=== PATIENT | female | born 1935 | race Two or more races ===

== ENCOUNTER 2017-10-17 14:01 | Outpatient (CLI) | payer OTHER ==
[~2017-10-17 14:01] MED LIST: CLOPIDOGREL BIS75 MG PO; LOSARTAN POTAS100 MG PO; SYNTHROID137 MCG; VASOTEC10 MG; ZOLOFT25 MG PO
== END 2017-10-17 14:12 | disposition home or self-care (01) ==
LOC: MAMO-SONO 14:01
DX: Z12.31 Encounter for screening mammogram for malignant neoplasm of breast (principal); Z87.898 Personal history of other specified conditions; R92.1 Mammographic calcification found on diagnostic imaging of breast

== ENCOUNTER 2018-04-12 08:26 | Emergency (ER) | payer OTHER ==
[~2018-04-12] VITALS: Ht 157.5 cm; Wt 68.0 kg
== END 2018-04-12 10:21 | disposition home or self-care (01) ==
LOC: ER 08:26
DX: M13.861 Other specified arthritis, right knee (principal); M25.561 Pain in right knee

== ENCOUNTER 2018-04-12 12:30 | Outpatient (CLI) | payer OTHER | END 2018-04-12 12:51 | disposition home or self-care (01) | LOC: LAB 12:30 | DX: N39.0 Urinary tract infection, site not specified (principal); B96.29 Other Escherichia coli [E. coli] as the cause of diseases classified elsewhere; Z22.322 Carrier or suspected carrier of Methicillin resistant Staphylococcus aureus; D68.8 Other specified coagulation defects; E83.42 Hypomagnesemia; D64.89 Other specified anemias; M06.4 Inflammatory polyarthropathy; M10.9 Gout, unspecified; E88.89 Other specified metabolic disorders; M25.461 Effusion, right knee; E55.9 Vitamin D deficiency, unspecified; M85.9 Disorder of bone density and structure, unspecified ==

== ENCOUNTER 2018-04-15 10:14 | Outpatient (CLI) | payer OTHER | END 2018-04-15 10:20 | disposition home or self-care (01) | LOC: LAB 10:14 | DX: M25.461 Effusion, right knee (principal) ==

== ENCOUNTER 2018-04-15 17:51 | Outpatient (CLI) | payer OTHER | END 2018-04-15 18:00 | disposition home or self-care (01) | LOC: LAB 17:51 | DX: M25.461 Effusion, right knee (principal) ==

== ENCOUNTER 2018-08-02 08:53 | Outpatient (CLI) | payer OTHER | END 2018-08-02 09:05 | disposition home or self-care (01) | LOC: LAB 08:53 | DX: D64.89 Other specified anemias (principal); E88.89 Other specified metabolic disorders; D68.8 Other specified coagulation defects; N39.0 Urinary tract infection, site not specified; Z22.322 Carrier or suspected carrier of Methicillin resistant Staphylococcus aureus; Z76.89 Persons encountering health services in other specified circumstances; I49.8 Other specified cardiac arrhythmias ==

== ENCOUNTER 2018-08-14 11:29 | Outpatient (CLI) | payer OTHER ==
[2018-08-15] MEDS ORDERED: LUMIGAN2.5 M1 OPHT (13:34)
== END 2018-08-14 11:46 | disposition home or self-care (01) ==
LOC: RAD 501 11:29
DX: M17.11 Unilateral primary osteoarthritis, right knee (principal); M79.651 Pain in right thigh; M79.604 Pain in right leg

== ENCOUNTER 2018-08-16 07:40 | Inpatient (IN) | payer OTHER ==
[~2018-08-16] VITALS: Ht 157.5 cm; Wt 68.0 kg
[~2018-08-16 07:40] MED LIST changes: +LUMIGAN2.5 M1 OPHT
== END 2018-08-22 14:19 | DRG 470 ==
LOC: SURG 08-19 05:45 → O/R 08-19 05:45 → RECOVERY 08-19 07:00 → SURG 08-19 14:37
PROVIDERS: ADMIT Orthopaedic Surgery
PROC: 0SRC0JZ Replacement of Right Knee Joint with Synthetic Substitute, Open Approach (ICD-10-PCS; principal; 2018-08-19 07:00)
PROC: 30233N1 Transfusion of Nonautologous Red Blood Cells into Peripheral Vein, Percutaneous Approach (ICD-10-PCS; 2018-08-20)
DX: M17.11 Unilateral primary osteoarthritis, right knee (principal); D62 Acute posthemorrhagic anemia; I10 Essential (primary) hypertension; E03.8 Other specified hypothyroidism

== ENCOUNTER 2018-08-23 21:41 | Inpatient (IN) | payer OTHER ==
[~2018-08-23] VITALS: Ht 157.5 cm; Wt 68.0 kg
--- NOTE | 2018-08-23 22:01 | NUR ---
PTE SE RECIBE POR ANEMIA REFIERE PARAMEDICO Y PTE.
--- NOTE | 2018-08-24 00:14 | NUR ---
FOX EVALUA PTE. SE ORIENTA A PTE SOBRE [place] MEDICO. PTE REFIERE COMPRENDER. SE COLECTAN MUESTRAS DE LABORATORIO BAJO MEDIDAS ASEPTICAS. SE ADMINISTRAN IV'S ALBERTO ORDEN MEDICA. SE COLECTAN TUBOS PILOTOS PARA 3 UNIDADES DE PRBC FRACCIONADAS. SE ORIENTA A PTE SOBRE PROTOCOLO DE TRANSFUSION DE SIA. PTE REFIERE COMPRENDER.SE NOTIFICA A PERSONAL DE BANCO DE SIA EN AUXILIO MUTUO A RICHMOND POR . PROCEDIMIENTOS LLEVADOS A CABO POR DB. 11:40AM- PERSONAL DE [place]AN[place] DE SIA BUSCA TUBOS PILOTOS.
--- NOTE | 2018-08-24 08:10 | NUR ---
SE RECIBE PTE ALERTA Y CONCINETE POR 3 EN FELICIA CON BARANDAS ELEVADA Y TIMBRE ACCESIBLE EN COMPANIA DE BAIRD FAMILIAR SE OBSERVA VENOPUNCION PATENTE Y MIGUELITO DE EDEMA, PTE EN ESPERA DEL DR WYNN PTE SE MANTIENE EN OBSERVACION Y BAJO TRATAMIENTO. PTE BAJANDO PRIMERA UNIDAD FRACIONADA
[2018-08-26] MEDS ORDERED: METOPROLOL SUC100 MG PO (09:48)
[2018-08-26] MEDS ORDERED: CLONAZEPAM1 MG PO (09:48)
[2018-08-26] MEDS ORDERED: PANTOPRAZOLE SO40 MG PO (09:49)
[2018-08-26] MEDS ORDERED: ROSUVASTATIN CA10 MG PO (09:49)
[2018-08-28] MEDS ORDERED: XARELTO10 MG PO (13:47)
== END 2018-08-28 17:18 | disposition home or self-care (01) | DRG 812 ==
LOC: ER 21:41 → SEC-K 08-24 12:58 → MEDI 08-24 12:58
PROVIDERS: ADMIT Internal Medicine
PROC: 30233N1 Transfusion of Nonautologous Red Blood Cells into Peripheral Vein, Percutaneous Approach (ICD-10-PCS; principal; 2018-08-24)
PROC: B54BZZZ Ultrasonography of Right Lower Extremity Veins (ICD-10-PCS; 2018-08-25)
PROC: BW28ZZZ Computerized Tomography (CT Scan) of Head (ICD-10-PCS; 2018-08-27)
DX: D62 Acute posthemorrhagic anemia (principal); D50.8 Other iron deficiency anemias; I87.2 Venous insufficiency (chronic) (peripheral); I10 Essential (primary) hypertension; E03.8 Other specified hypothyroidism; Z96.651 Presence of right artificial knee joint; Z88.0 Allergy status to penicillin

== ENCOUNTER 2019-04-24 10:30 | Outpatient (CLI) | payer OTHER ==
[~2019-04-24 10:30] MED LIST changes: +CLONAZEPAM1 MG PO; +METOPROLOL SUC100 MG PO; +PANTOPRAZOLE SO40 MG PO; +ROSUVASTATIN CA10 MG PO; +XARELTO10 MG PO
== END 2019-04-24 10:38 | disposition home or self-care (01) ==
LOC: MAMO-SONO 10:30
DX: Z12.31 Encounter for screening mammogram for malignant neoplasm of breast (principal); Z87.898 Personal history of other specified conditions; R92.0 Mammographic microcalcification found on diagnostic imaging of breast

== ENCOUNTER 2020-06-08 09:45 | Emergency (ER) | payer OTHER ==
[~2020-06-08] VITALS: Ht 149.9 cm; Wt 68.0 kg
[2020-06-08] MEDS ORDERED: HORIZANT300 MG PO (10:35)
[2020-06-08] MEDS ORDERED: CELEBREX100 MG PO (10:35)
[2020-06-08] MEDS ORDERED: VALACYCLOVIR1000 MG PO (10:35)
[2020-06-08] MEDS ORDERED: FLONASE ALLERG9.9 ML NASAL (10:36)
== END 2020-06-08 10:45 | disposition home or self-care (01) ==
LOC: ER 09:45
DX: B02.8 Zoster with other complications (principal); B99.8 Other infectious disease

== ENCOUNTER 2021-04-07 07:14 | Inpatient (IN) | payer OTHER ==
[~2021-04-07] VITALS: Ht 152.4 cm; Wt 62.6 kg
[~2021-04-07 07:14] MED LIST changes: +CELEBREX100 MG PO; +FLONASE ALLERG9.9 ML NASAL; +HORIZANT300 MG PO; +VALACYCLOVIR1000 MG PO
[2021-04-08] MEDS ORDERED: OMEPRAZOLE20 MG (08:42)
[2021-04-08] MEDS ORDERED: ABATINEX680 MG (08:42)
[2021-04-08] MEDS ORDERED: REFRESH RELIEVA10 M1 (08:42)
[2021-04-08] MEDS ORDERED: FAMOTIDINE20 MG (08:42)
[2021-04-08] MEDS ORDERED: MECLIZINE HCL12.5 MG (08:42)
[2021-04-08] MEDS ORDERED: ABATRACE CAPSU1 EACH (08:42)
== END 2021-04-08 14:30 | disposition designated cancer center or children's hospital (05) | DRG 309 ==
LOC: ER 07:14 → MEDI 13:18 → SEC-K 13:18 → MEDI 16:29
PROVIDERS: ADMIT Internal Medicine; ATTEND Internal Medicine
PROC: 4A12X4Z Monitoring of Cardiac Electrical Activity, External Approach (ICD-10-PCS; principal; 2021-04-07)
PROC: B24BYZZ Ultrasonography of Heart with Aorta using Other Contrast (ICD-10-PCS; 2021-04-07)
DX: I47.1 Supraventricular tachycardia (principal); E87.1 Hypo-osmolality and hyponatremia; I48.92 Unspecified atrial flutter; I10 Essential (primary) hypertension; E03.9 Hypothyroidism, unspecified; R55 Syncope and collapse; I45.10 Unspecified right bundle-branch block; Z86.73 Personal history of transient ischemic attack (TIA), and cerebral infarction without residual deficits
CPT/HCPCS: 70544

== ENCOUNTER 2021-10-03 10:47 | Inpatient (IN) | payer OTHER ==
[~2021-10-03] VITALS: Ht 157.5 cm; Wt 57.2 kg
[~2021-10-03 10:47] MED LIST changes: +ABATINEX680 MG; +ABATRACE CAPSU1 EACH; +FAMOTIDINE20 MG; +MECLIZINE HCL12.5 MG; +OMEPRAZOLE20 MG; +REFRESH RELIEVA10 M1
[2021-10-03] MEDS ORDERED: ELIQUIS2.5 MG PO (11:28)
[2021-10-03] MEDS ORDERED: SYNTHROID112 MCG PO (11:29)
[2021-10-03] MEDS ORDERED: CARVEDILOL6.25 MG (11:30)
--- NOTE | 2021-10-03 11:31 | NUR ---
SE RECIBE PTE ALERTA Y ORIENTADA X3,REFIERE TENER DOLOR ABDOMINAL TUVO UN EVENTO DE EMESIS HOY.
--- NOTE | 2021-10-03 12:38 | NUR ---
PTE EVALUADO POR MD [place] MED. SE EDUCA A PTE SOBRE EL MISMO Y REFIERE ENTENDER. SE EJECUTAN ORDENES BAJO MEDIDAS ACEPTICAS. PTE EN FELICIA PEND A RESULTADOS DE LAB Y A REALIZAR CT DE [facility]
--- NOTE | 2021-10-03 15:08 | NUR ---
PACIENTE ALERTA Y ORIENTADA EN [place] ESFERAS SE LE ADMINISTRAN LOS MEDICAMENTOS ALBERTO ORDEN MEDICA. SE QUEDA EKG PENDIENTE YA QUE LA MAQUINA NO FUNCIONA AL MOMENTO. SE ASISTE A MS SPENCER PARA CANALIZAR. PACIENTE PERMENECE EN FELICIA EN FELICIA CON BARANDAS ELEVADAS Y TIMBRE ACCESIBLE. SE ORIENTA A PACIENTE SOBRE ORDENES MEDICAS, PACIENTE REFIERE ENTENDER.
--- NOTE | 2021-10-03 15:15 | NUR ---
PTE PRESENTANDO BP EN 180/90MMHG, SE NOTIFICA A , EL REFIERE SUBIR RATE DE TRIDIL A 5ML/HR, MANTENER EN OBSERVACION POR CAMBIOS.
== END 2021-10-05 21:26 | disposition home or self-care (01) | DRG 305 ==
LOC: ER 10:47 → SURG 19:04 → SEC-K 19:04 → SURG 10-04 07:45
PROVIDERS: ADMIT Internal Medicine; ATTEND Internal Medicine
PROC: 4A12X45 Monitoring of Cardiac Electrical Activity, Ambulatory, External Approach (ICD-10-PCS; principal; 2021-10-04)
DX: I16.0 Hypertensive urgency (principal); I5A Non-ischemic myocardial injury (non-traumatic); I11.9 Hypertensive heart disease without heart failure; I25.10 Atherosclerotic heart disease of native coronary artery without angina pectoris; E78.5 Hyperlipidemia, unspecified; E03.9 Hypothyroidism, unspecified; I48.0 Paroxysmal atrial fibrillation

== ENCOUNTER 2021-10-20 14:39 | Inpatient (IN) | payer OTHER ==
[~2021-10-20] VITALS: Ht 157.5 cm; Wt 576.1 kg
[~2021-10-20 14:39] MED LIST changes: +CARVEDILOL6.25 MG; +ELIQUIS2.5 MG PO; +SYNTHROID112 MCG PO
--- NOTE | 2021-10-20 15:28 | NUR ---
SE RECIBE PTE ALERTA Y ORIENTADA EN JARED FAITH ESFERAS, LA CUAL LLEGA EN AMBULANCIA, PARAMEDICOS INDICAN QUE FUERON ACTIVADOS POR SINCOPE, AL MOMENTO PTE REFIERE DOLOR DE PECHO, SE OBSERVA PALIDA Y SUDOROSA. PRESENTA PULSO 190-250 LATIDOS/MINUTO. SE PRESENTA PTE A DR ROBERT Y SE UBICA EN EL AREA DE CRITICO. SE CONECTA A MONITOR CARDIACO Y OXIMETRIA DE PULSO. SE CANALIZA EN ANTEBRAZO LT CON ANGIO #[id number], PATENTE Y MIGUELITO DE EDEMA O ERITEMA.
--- NOTE | 2021-10-20 16:19 | NUR ---
SE RECIBE PTEFEMENINA ALERTA Y ORIENTADA X3,CONECTADA A MONITOR CARTDIACO KALEIGH Y OXIMETRIA CONTINUA,SE MANTIENE CON 2 H/L PATENTES LIBRES DE EDEMA Y ENROJECIMIENTO,CON C/N A 3LTRS,SE COLOCA WILLS SIGIIENO MEDIDAS ASEPTICAS, POR ORDEN DE VICKY INDICA NO SE ADMINISTRE ANTIVAN PO,LA CUAL SE DESCONTINUA,SE MANTIENE A PTE EN VIGILANCIA KALEIGH POR CAMBIOS.
--- NOTE | 2021-10-20 19:37 | NUR ---
SE REALIZA A PTE X RAY Y CT [facility],SE REALIZAN S/V, SE MANTIENE CON DRIP DE AMIODARONE 360/200@33,SE MANTIENE A PTE EN VIGILANCIA KALEIGH POR CAMBIOS. EN ESPERA DE MEDICO CONSULTOR.
== END 2021-10-24 20:10 | disposition home or self-care (01) | DRG 309 ==
LOC: ER 14:39 → SEC-K 20:46 → MEDI 10-21 10:03 → SEC-K 10-21 10:16 → MEDI 10-21 15:06
PROVIDERS: ADMIT Internal Medicine; ATTEND Internal Medicine
PROC: 4A12X4Z Monitoring of Cardiac Electrical Activity, External Approach (ICD-10-PCS; principal; 2021-10-20)
DX: I47.1 Supraventricular tachycardia (principal); I24.9 Acute ischemic heart disease, unspecified; I49.5 Sick sinus syndrome; I16.0 Hypertensive urgency; I11.9 Hypertensive heart disease without heart failure; I25.10 Atherosclerotic heart disease of native coronary artery without angina pectoris; I48.0 Paroxysmal atrial fibrillation; E78.5 Hyperlipidemia, unspecified